=== PATIENT | female | born 1945 | race Two or more races ===

== ENCOUNTER 2018-11-09 15:36 | Emergency (ER) | payer MEDICARE, MEDICAID ==
[~2018-11-09] VITALS: Ht 144.8 cm; Wt 71.7 kg
--- NOTE | 2018-11-09 16:02 | NUR ---
PT IS IN ROOM #2A. DR FRANCISCO EVALUATED THE PT.
[2018-11-09 16:15] LABS: *BILIRUBIN,URIN NEGATIVE (NEGATIVE); *BLOOD, URINE NEGATIVE (NEGATIVE); *CLARITY,URINE CLEAR (CLEAR); *COLOR,URINE YELLOW (YELLOW); *KETONES,URINE NEGATIVE (NEGATIVE); *UROBILINOGEN,URINE 0.2 E.U./dl (NORMAL); LEUKOCYTE ESTERASE ,URINE TRACE (NEGATIVE); NITRITE, URINE NEGATIVE (NEGATIVE); UGLUCOSE NEGATIVE (NEGATIVE)
[2018-11-09 16:23] LABS: SQUAMOUS EPITHELIAL CELL,UR FEW /HPF (NONE SEEN); WBC,URINE 0-3 /HPF (0-3)
[2018-11-09 16:24] LABS: MUCUS,URINE FEW /LPF (0-FEW)
[2018-11-09] MEDS ORDERED: ACETAMINOPHEN ES 500 MG TABLET PO ONE (16:30)
[2018-11-09] MEDS ORDERED: SERT50TA PO (16:36)
[2018-11-09] MEDS ORDERED: FURO-152 PO (16:36)
[2018-11-09] MEDS ORDERED: AMLO10TA7 PO (16:36)
[2018-11-09] MEDS ORDERED: CHOL200010 PO (16:36)
[2018-11-09] MEDS ORDERED: FERR325T28 PO (16:36)
[2018-11-09] MEDS ORDERED: ICOS1CAP PO (16:36)
[2018-11-09] MEDS ORDERED: PANT40TA4 PO (16:36)
[2018-11-09] MEDS ORDERED: LISI10TA5 PO (16:36)
[2018-11-09] MEDS ORDERED: LANTUS INSULIN SQ (16:36)
[2018-11-09] MEDS ORDERED: CLON0.5T12 PO (16:36)
[2018-11-09] MEDS ORDERED: ATOR80TA PO (16:36)
[2018-11-09] MEDS ORDERED: MAGN400C PO (16:36)
[2018-11-09] MEDS ORDERED: CHOL200074 PO (16:36)
[2018-11-09] MEDS ORDERED: INSU100V11 SQ (16:36)
[2018-11-09] MEDS ORDERED: TRAZ-182 PO (16:36)
[2018-11-09] MEDS ORDERED: LEVO50TA8 PO (16:36)
[2018-11-09] MEDS ORDERED: CLOP75TA15 PO (16:36)
[2018-11-09] MEDS ORDERED: CARV3.122 PO (16:36)
[2018-11-09] MEDS ORDERED: EZET10TA13 PO (16:36)
[2018-11-09] MEDS ORDERED: PARI1CAP PO (16:36)
[2018-11-09] MEDS ORDERED: ACETAMINOPHEN ES 500 MG TABLET ONE (16:51)
--- NOTE | 2018-11-09 18:05 | NUR ---
PT WAS D/C'd TO HOME. D/C INSTRUCTIONS GIVEN TO THE PT AND TO HER JOAOER.
[2018-11-09 18:07] VITALS: BP 142/78
== END 2018-11-09 18:09 | disposition home or self-care (01) ==
LOC: ER 15:36
DX: M54.5 Low back pain (principal); I10 Essential (primary) hypertension; I25.10 Atherosclerotic heart disease of native coronary artery without angina pectoris; E78.5 Hyperlipidemia, unspecified; K21.9 Gastro-esophageal reflux disease without esophagitis; E11.9 Type 2 diabetes mellitus without complications; Z95.1 Presence of aortocoronary bypass graft; Z90.710 Acquired absence of both cervix and uterus; Z86.73 Personal history of transient ischemic attack (TIA), and cerebral infarction without residual deficits; Z79.4 Long term (current) use of insulin; Z79.899 Other long term (current) drug therapy
CPT/HCPCS: 72110; A4663; A9150